=== PATIENT | male | born 1965 | race Caucasian/White ===

== ENCOUNTER 2019-06-26 12:07 | Day surgery (SDC) | payer OTHER ==
[2019-06-19 16:43] VITALS: BMI 48.8
[2019-06-26] MEDS ORDERED: ROPIVACAINE HCL 0.5% 30ML VIAL ONE (12:11)
[2019-06-26] MEDS ORDERED: MIDAZOLAM HCL 2 MG/2 ML SINGLE DOSE VIAL ONE (12:11)
[2019-06-26] MEDS ORDERED: DEXAMETHASONE SOD PHOSPHATE/PF 10 MG/ML SDV ONE (12:11)
[2019-06-26] MEDS ORDERED: BUPIVACAINE HCL/PF 0.5% (5MG/ML) 10 ML VIAL ONE (12:24)
[2019-06-26] MEDS ORDERED: ceFAZolin SODIUM 1 GM VIAL ONE (15:25)
[2019-06-26] MEDS ORDERED: LIDOCAINE HCL/PF 2% SDV 5ML VIAL ONE (15:25)
[2019-06-26] MEDS ORDERED: DEXAMETHASONE SOD PHOSPHATE 4 MG/1 ML VIAL ONE ×2 (15:25→17:29)
[2019-06-26] MEDS ORDERED: ONDANSETRON 4 MG/2 ML VIAL ONE (15:25)
[2019-06-26] MEDS ORDERED: PROPOFOL 20 ML ONE (15:48)
[2019-06-26] MEDS ORDERED: KETAMINE HCL 200 MG/20 ML VIAL ONE (15:49)
[2019-06-26] MEDS ORDERED: KETOROLAC TROMETHAMINE 30 MG/1 ML VIAL ONE (17:29)
[2019-06-26] MEDS ORDERED: oxyCODONE HCL 5 MG TABLET PO PRN (18:35)
[2019-06-26 20:33] VITALS: BP 127/85; PULSE 79; TEMP 98
--- NOTE | 2019-06-27 13:58 | OP ---
DATE OF OPERATION: 06/26/2019 PREOPERATIVE DIAGNOSIS: Right ulna shaft nonunion. POSTOPERATIVE DIAGNOSIS: Right ulna shaft nonunion. OPERATION: Right ulna shaft nonunion repair with internal fixation and autograft bone grafting. SURGEON: Ema Lawrence MD LOAN OFFICER: INOCENCIO Gallegos ANESTHESIA: Regional and general. COMPLICATIONS: None. ESTIMATED BLOOD LOSS: Minimal. INDICATIONS FOR PROCEDURE: The patient is a 53-year-old male with the above finding, indicated for operative treatment. Risks, benefits, alternatives were discussed with patient at length. Proper informed consent was obtained. PROCEDURE: After proper identification of patient and correct operative site, patient was brought to operating room and placed supine on table, prominences well padded. General and regional anesthesia were given. The right upper extremity was prepped and draped in the usual sterile fashion. A well-padded tourniquet was placed over the sterile prep. Esmarch bandage to exsanguinate right upper extremity. Tourniquet was inflated to 250 mmHg. A longitudinal incision was made over the subcutaneous border of the ulna. Incision was taken sharply through skin down to the level of the bone, carefully protecting the ulnar sensory nerve in the distal aspect of the incision. The nonunion site was identified and found to be hypertrophic and was debrided of any callus formation and any fibrous tissue in the fracture site. The bone ends were able to be brought together in a satisfactory position with compression. A [employer] 7-hole small fragment locking plate was then placed in the proximal aspect of the fracture in the shaft of the bone with a bicortical and one unicortical screw. This provided secure stable fixation on this side. The fracture was then approximated in compression mode with 2 separate screw holes. The fracture was secured and compressed to the distal aspect of the plate. A final locking screw was placed in the most distal hole. This provided excellent fracture alignment as well as compression, which was confirmed visually as well as on radiographs. A small incision was made over the dorsal radial aspect of the wrist. Incision was taken sharply through the skin with blunt and sharp dissection in subcutaneous tissue, taking care to protect neurosensory structures. A window was made in the cortex of the bone and the bone graft was harvested from the radial styloid area. The wound was then approximated using 4-0 Vicryl and 4-0 Monocryl suture. The bone graft was packed into the nonunion site. The wound was repaired in layers using 4-0 Vicryl and 4-0 nylon suture. Sterile dressings were applied. A long arm sugar-tong splint was placed. Full range of motion was achieved with pronation and supination of the forearm. The patient was brought to the recovery room in stable condition. He tolerated the procedure well. Jose Cox, the video production assistant, was integral throughout the procedure. The procedure could not have been performed without a skilled operative video production assistant. EMA LAWRENCE M.D. JOIN/[id number]
== END 2019-06-26 20:32 | disposition home or self-care (01) ==
LOC: FASU 12:07
PROVIDERS: ATTEND Orthopaedic Surgery Hand Surgery
PROC: 0PUK07Z Supplement Right Ulna with Autologous Tissue Substitute, Open Approach (ICD-10-PCS; 2019-06-26)
PROC: 0PBH0ZZ Excision of Right Radius, Open Approach (ICD-10-PCS; 2019-06-26)
PROC: 0PHK04Z Insertion of Internal Fixation Device into Right Ulna, Open Approach (ICD-10-PCS; principal; 2019-06-26 14:00)
DX: S52.291K Other fracture of shaft of right ulna, subsequent encounter for closed fracture with nonunion (principal); X58.XXXD Exposure to other specified factors, subsequent encounter
CPT/HCPCS: 25405; C1713; 73110-TC-RT-FY; 94760